=== PATIENT | female | born 1960 | race African-American/Black ===

== ENCOUNTER 2022-08-28 12:01 | Emergency (ER) | payer OTHER ==
[~2022-08-28] VITALS: Ht 177.8 cm; Wt 109.7 kg
[2022-08-28] MEDS ORDERED: DEXTROSE 50%-WATER 25 GM/50 ML SYRINGE IVP ONE ×2 (12:08→12:15)
[2022-08-28 12:28] LABS: BASOPHILS % (AUTO) 0.9 % (0.0-2.0); HEMATOCRIT 44.7 % (36-46); HEMOGLOBIN 14.2 g/dL (12.0-16.0); LYMPHOCYTES # (AUTO) 2.2 K/uL (1.0-4.8); LYMPHOCYTES % (AUTO) 49.3 % (22.0-44.0); MEAN CORPUSCULAR HEMOGLOBIN 31.5 pg (26.0-34.0); MEAN CORPUSCULAR HGB CONC 31.8 G/dL (31.0-37.0); MEAN CORPUSCULAR VOLUME 99 fL (80-100); MONOCYTES # (AUTO) 0.4 K/uL (0.1-1.0); MONOCYTES % (AUTO) 9.1 % (2.0-9.0); NEUTROPHILS # (AUTO) 1.7 K/uL (1.8-7.7); NEUTROPHILS % (AUTO) 37.7 % (40.0-70.0); PLATELET COUNT (AUTO) 142 K/uL (150-450); RED CELL DISTRIBUTION WIDTH 14.9 % (11.5-14.5)
[2022-08-28 12:33] LABS: COVID AG,FIA SOURCE NASAL SWAB
[2022-08-28 12:42] LABS: CALCIUM, TOTAL 9.5 mg/dL (8.8-10.5); CREATININE 7.1 mg/dL (0.60-1.30); POTASSIUM 4.7 mmol/L (3.5-5.1)
[2022-08-28 12:45] LABS: INR 1.3 (0.9-1.1); PROTHROMBIN TIME 13.3 SEC (9.4-11.6)
[2022-08-28 12:49] LABS: ALBUMIN 3.7 g/dL (3.4-5.0); BILIRUBIN,TOTAL 0.6 mg/dL (0.1-1.0); TOTAL PROTEIN, SERUM 8.1 g/dL (6.4-8.2)
[2022-08-28 13:12] LABS: GLUCOSE,POINT OF CARE 59 MG/DL (70-110)
[2022-08-28 13:56] LABS: GLUCOMETER DEV NAME(LOC) ERT.5; GLUCOSE,POINT OF CARE 46 MG/DL (70-110)
[2022-08-28] MEDS ORDERED: SODIUM CHLORIDE 0.9% 250 ML IV ONE ×2 (14:30→17:30)
[2022-08-28 16:31] LABS: GLUCOMETER DEV NAME(LOC) ERT.5; GLUCOSE,POINT OF CARE 74 MG/DL (70-110)
[2022-08-28 16:57] LABS: CALCIUM, TOTAL 9.1 mg/dL (8.8-10.5); CREATININE 7.85 mg/dL (0.60-1.30); POTASSIUM 4.8 mmol/L (3.5-5.1)
[2022-08-28 18:25] VITALS: BP 115/72
== END 2022-08-28 19:20 | disposition home or self-care (01) ==
LOC: EMS 12:27
DX: R53.1 Weakness (principal); E11.9 Type 2 diabetes mellitus without complications; I10 Essential (primary) hypertension; Z20.822 Contact with and (suspected) exposure to COVID-19
CPT/HCPCS: 99285; 96374; 71045; 96361; 87426; 80053; 83880; 84484; 85025; 85610; 85730; 36415; 93005; 80048; 82962; J7050

== ENCOUNTER 2023-07-06 10:49 | Emergency (ER) | payer OTHER ==
[~2023-07-06] VITALS: Ht 172.7 cm; Wt 99.1 kg
[2023-07-06 10:53] VITALS: TEMP 98
[2023-07-06] MEDS ORDERED: MIDO10TA PO (10:53)
[2023-07-06] MEDS ORDERED: ASPI-1444 PO (10:53)
[2023-07-06] MEDS ORDERED: ATOR40TA71 PO (10:53)
[2023-07-06] MEDS ORDERED: NUT.237L84 PO (10:53)
[2023-07-06 11:48] LABS: EOSINOPHILS % (AUTO) 2.8 % (1.0-6.0); HEMATOCRIT 40.5 % (36-46); HEMOGLOBIN 13.3 g/dL (12.0-16.0); LYMPHOCYTES # (AUTO) 1.7 K/uL (1.0-4.8); LYMPHOCYTES % (AUTO) 40.9 % (22.0-44.0); MEAN CORPUSCULAR VOLUME 94 fL (80-100); MONOCYTES # (AUTO) 0.2 K/uL (0.1-1.0); MONOCYTES % (AUTO) 6.1 % (2.0-9.0); NEUTROPHILS % (AUTO) 49.2 % (40.0-70.0); PLATELET COUNT (AUTO) 179 K/uL (150-450); RED CELL DISTRIBUTION WIDTH 16.1 % (11.5-14.5); WHITE BLOOD COUNT (AUTO) 4.1 K/uL (4.5-11.0)
[2023-07-06 11:53] LABS: CREATININE 5.83 mg/dL (0.60-1.30); POTASSIUM 3.6 mmol/L (3.5-5.1)
[2023-07-06 11:59] LABS: ALBUMIN 3.5 g/dL (3.4-5.0); BILIRUBIN,TOTAL 0.6 mg/dL (0.1-1.0); TOTAL PROTEIN, SERUM 8.4 g/dL (6.4-8.2)
[2023-07-06 12:01] LABS: TROPONIN I-HIGH SENSITIVITY 20 ng/L (<51)
[2023-07-06 12:10] VITALS: BP 114/67; PULSE 83; RESP 17
== END 2023-07-06 13:01 | disposition home or self-care (01) ==
LOC: EMS 10:49
DX: R42 Dizziness and giddiness (principal); E11.9 Type 2 diabetes mellitus without complications; I10 Essential (primary) hypertension; Z98.890 Other specified postprocedural states
CPT/HCPCS: 71045; 80053; 83880; 84484; 85025; 93005; 99285